=== PATIENT | female | born 1965 | race Caucasian/White ===

== ENCOUNTER → 2018-01-23 | Outpatient (CLI) | payer OTHER ==
--- NOTE | 2018-01-23 15:37 | RADIOLOGY REPORT (SQ) ---
EXAM DESCRIPTION: U/S RETROPERITON (RENAL/AORTA); U/S LTD DUPLEX ART/PATTI FLOW COMPLETED DATE/TIME: 01/23/2018 10:46 am REASON FOR STUDY: I10 ESSENTIAL (PRIMARY) HYPERTENSION; D I10 ESSENTIAL (PRIMARY) HYPERTENSION COMPARISON: None. TECHNIQUE: Realtime and static grayscale images acquired. Selected color Doppler, velocities and spe ctral images recorded. LIMITATIONS: Unable to visualize the renal artery origins off the aorta due to midline bowel gas and body habitus FINDINGS: RIGHT KIDNEY: RENAL ARTERY VELOCITIES: At the hilum, 42.8 cm/sec. Segmental artery velocity 25 cm/sec. RENAL VEIN: Color doppler flow present, patent. VELOCITY RATIO: 0.6. Normal waveforms KIDNEY: 10.1 cm in length. No hydronephrosis. Grossly normal cortical thickness. There is a sept ated cyst in the upper pole right kidney, with calcification along the septation, likely a Bosniak [address] OF THE ABDOMEN PELVIS WITHOUT AND WITH IV CONTRAST TO EVALUATE THIS LESION IS RECOMMENDED LEFT KIDNEY: RENAL ARTERY VELOCITIES: At the hilum, 60.1 cm/sec. Segmental artery velocity 44 cm/sec. RENAL VEIN: Color doppler flow present, patent. VELOCITY RATIO: 0.8. Normal waveforms. KIDNEY: 11.2 cm in length. Normal cortical thickness. 2 cm midpole cyst. BLADDER: Normal. Bilateral ureteral jets are identified OTHER: No other significant finding. IMPRESSION: NO DOPPLER EVIDENCE OF HEMODYNAMICALLY SIGNIFICANT RENAL ARTERY STENOSIS. COMPLEX CYST RIGHT UPPER POLE WITH CALCIFICATION OF SEPTATIONS. CT OF THE ABDOMEN PELVIS WITHOUT AND WITH IV CONTRAST TO EVALUATE THIS LESION IS RECOMMENDED. COMMENT: NORMAL RENAL ARTERY/AORTA VELOCITY RATIO IS LESS THAN OR EQUAL TO 3.5. TECHNICAL DOCUMENTATION: JOB ID: [id number] [employer] All Rights Reserved Reading location - IP/workstation name: [id number]
--- NOTE | 2018-01-23 15:37 | RADIOLOGY REPORT (SQ) ---
EXAM DESCRIPTION: U/S RETROPERITON (RENAL/AORTA); U/S LTD DUPLEX ART/PATTI FLOW COMPLETED DATE/TIME: 01/23/2018 10:46 am REASON FOR STUDY: I10 ESSENTIAL (PRIMARY) HYPERTENSION; D I10 ESSENTIAL (PRIMARY) HYPERTENSION COMPARISON: None. TECHNIQUE: Realtime and static grayscale images acquired. Selected color Doppler, velocities and spe ctral images recorded. LIMITATIONS: Unable to visualize the renal artery origins off the aorta due to midline bowel gas and body habitus FINDINGS: RIGHT KIDNEY: RENAL ARTERY VELOCITIES: At the hilum, 42.8 cm/sec. Segmental artery velocity 25 cm/sec. RENAL VEIN: Color doppler flow present, patent. VELOCITY RATIO: 0.6. Normal waveforms KIDNEY: 10.1 cm in length. No hydronephrosis. Grossly normal cortical thickness. There is a sept ated cyst in the upper pole right kidney, with calcification along the septation, likely a Bosniak [address] OF THE ABDOMEN PELVIS WITHOUT AND WITH IV CONTRAST TO EVALUATE THIS LESION IS RECOMMENDED LEFT KIDNEY: RENAL ARTERY VELOCITIES: At the hilum, 60.1 cm/sec. Segmental artery velocity 44 cm/sec. RENAL VEIN: Color doppler flow present, patent. VELOCITY RATIO: 0.8. Normal waveforms. KIDNEY: 11.2 cm in length. Normal cortical thickness. 2 cm midpole cyst. BLADDER: Normal. Bilateral ureteral jets are identified OTHER: No other significant finding. IMPRESSION: NO DOPPLER EVIDENCE OF HEMODYNAMICALLY SIGNIFICANT RENAL ARTERY STENOSIS. COMPLEX CYST RIGHT UPPER POLE WITH CALCIFICATION OF SEPTATIONS. CT OF THE ABDOMEN PELVIS WITHOUT AND WITH IV CONTRAST TO EVALUATE THIS LESION IS RECOMMENDED. COMMENT: NORMAL RENAL ARTERY/AORTA VELOCITY RATIO IS LESS THAN OR EQUAL TO 3.5. TECHNICAL DOCUMENTATION: JOB ID: [id number] [email or web address]- All Rights Reserved Reading location - IP/workstation name: [email or web address]
== END ==
LOC: RAD 09:06
PROVIDERS: ATTEND Internal Medicine Clinical Cardiac Electrophysiology
DX: I10 Essential (primary) hypertension (principal)
CPT/HCPCS: 76770; 93976